=== PATIENT | female | born 1945 | race Caucasian/White ===

== ENCOUNTER 2019-09-29 21:52 | Emergency (ER) | payer BC, MEDICARE, OTHER ==
[2019-09-29] MEDS ORDERED: LORazepam 2 MG/ML SDV IVPUSH ONE ×2 (22:57→23:55)
--- NOTE | 2019-09-29 22:57 | EDM.PDOC ---
ED HPI GENERAL MEDICAL PROBLEM - General Chief Complaint: General Stated Complaint: MEDICAL VIA [facility] Time Seen by Provider: 09/29/19 22:48 Source of Information: Reports: Patient History Limitations: Reports: No Limitations - History of Present Illness INITIAL COMMENTS - FREE TEXT/NARRATIVE: Laura is a 74 yo female that is brought into the ED via EMS for anxiety. She was home this evening with her and he collapsed and went unresponsive (around 20:00) right after he put eye drops in. EMS was called and he was intubated and airlifted to [facility] in [facility] in critical condition. Laura is very anxious about her as they have been together since they were [age]. Her son that lives in the [facility] is on his way and the daughter from [place] is also on her way. Denies any pain. Is tachycardic and slightly tachypneic upon arrival. Onset: Sudden Duration: Hour(s): (3) - Related Data Allergies Allergy/AdvReac Type Severity Reaction Status Date / Time erythromycin base Allergy BAD DREAMS Verified 09/29/19 22:19 [From Staticin] VERY VIVID ethyl alcohol [From Staticin] Allergy BAD DREAMS Verified 09/29/19 22:19 VERY VIVID lisinopril Allergy Cannot Verified 09/29/19 22:19 Remember simvastatin [From Zocor] Allergy DREAMING Verified 09/29/19 22:19 VIVID [id number] Reductase Allergy Cannot Verified 09/29/19 22:19 Inhibitor Remember tramadol Allergy Hives Verified 09/29/19 22:19 Home Meds: Home Meds Aspirin 650 mg PO BID PRN 10/25/14 [History] Levothyroxine Sodium [Synthroid] 62 mcg PO DAILY 10/25/14 [History] Losartan [Cozaar] 100 mg PO DAILY 10/25/14 [History] Multivitamin with Minerals [Multiple Vitamin] 1 tab PO DAILY 10/25/14 [History] Standish-3 Fatty Acids/Fish Oil [Fish Oil 1,200 mg Softgel] 1 cap PO BID 10/25/14 [History] Triamterene/Hydrochlorothiazid [Dyazide 37.5-25] 1 tab PO DAILY 10/25/14 [History] Diclofenac Sodium [Voltaren] 100 gm TP ASDIRECTED 09/29/19 [History] Past Medical History HEENT History: Reports: Impaired Vision Cardiovascular History: Reports: Hypertension HEEL LAYER History: Reports: Psychiatric History: Reports: Anxiety Endocrine/Metabolic History: Reports: Hypothyroidism Oncologic (Cancer) History: Reports: Uterine - Infectious Disease History Infectious Disease History: Reports: Chicken Pox, Measles, Mumps - Past Surgical History Female Surgical History: Reports: Hysterectomy Social & Family History - Family History Family Medical History: Noncontributory - Tobacco Use Smoking Status *Q: Never Smoker - Caffeine Use Caffeine Use: Reports: Soda - Recreational Drug Use Recreational Drug Use: No ED ROS GENERAL - Review of Systems Review Of Systems: See Below Constitutional: Reports: No Symptoms HEENT: Reports: No Symptoms Respiratory: Reports: No Symptoms. Denies: Pleuritic Chest Pain Cardiovascular: Reports: Other (tachycardia). Denies: Chest Pain Endocrine: Reports: No Symptoms GI/Abdominal: Denies: Abdominal Pain, Nausea : Reports: No Symptoms Musculoskeletal: Reports: No Symptoms Skin: Reports: No Symptoms Neurological: Reports: No Symptoms Psychiatric: Reports: Anxiety Hematologic/Lymphatic: Reports: No Symptoms Immunologic: Reports: No Symptoms ED EXAM, GENERAL - Physical Exam Exam: See Below Exam Limited By: No Limitations General Appearance: Alert, Mild Distress Head: Atraumatic, Normocephalic Respiratory/Chest: No Respiratory Distress, Lungs Clear, Normal Breath Sounds, No Accessory Muscle Use Cardiovascular: Regular Rate, Rhythm, No Edema, No Murmur GI/Abdominal: Non-Tender Extremities: Normal Capillary Refill Course - Vital Signs Last Recorded V/S: Last Vital Signs Temp 96.4 F L 09/29/19 22:21 Pulse 100 09/30/19 01:17 Resp 12 09/29/19 23:31 BP 140/79 09/30/19 01:17 Pulse Ox 95 09/29/19 23:31 - Orders/Labs/Meds Labs: Laboratory Tests 09/30/19 09/30/19 09/30/19 Range/Units 00:20 00:20 00:20 WBC 10.0 (4.5-11.0) K/uL RBC 4.57 (3.30-5.50) M/uL Hgb 13.1 (12.0-15.0) g/dL Hct 40.4 (36.0-48.0) % MCV 88 (80-98) fL MCH 29 (27-31) pg MCHC 32 (32-36) % Plt Count 206 (150-400) K/uL Neut % (Auto) 88 H (36-66) % Lymph % (Auto) 7 L (24-44) % [place] % (Auto) 5 (2-6) % Eos % (Auto) 0 L (2-4) % Baso % (Auto) 0 (0-1) % Sodium 139 L (140-148) mmol/L Potassium 3.7 (3.6-5.2) mmol/L Chloride 105 (100-108) mmol/L Carbon Dioxide 20 L (21-32) mmol/L Anion Gap 17.7 H (5.0-14.0) mmol/L BUN 32 H (7-18) mg/dL Creatinine 1.8 H (0.6-1.0) mg/dL Est Cr Clr Drug Dosing 24.89 mL/min Estimated GFR (MDRD) 27 L (>60) Glucose 141 H (74-106) mg/dL Calcium 9.2 (8.5-10.1) mg/dL TSH, Ultra Sensitive 0.565 (0.358-3.740) uIU/mL Meds: Medications Discontinued Medications Generic Name Dose Route Start Last Admin Trade Name Freq PRN Reason Stop Dose Admin Sodium Chloride 1,000 mls @ 999 mls/hr 09/30/19 01:20 09/30/19 01:20 Normal Saline IV 09/30/19 02:20 999 mls/hr .BOLUS ONE Administration Lorazepam 0.5 mg 09/29/19 22:57 09/29/19 23:14 Ativan IVPUSH 09/29/19 22:58 0.5 mg ONETIME ONE Administration Lorazepam 0.5 mg 09/29/19 23:55 09/30/19 00:05 Ativan IVPUSH 09/29/19 23:56 0.5 mg ONETIME ONE Administration - Re-Assessments/Exams Free Text/Narrative Re-Assessment/Exam: 09/29/19 23:47 patient states that she is feeling better after ativan. Still quite worried about her as she hasn't heard anything from [facility] yet. Free Text/Narrative Re-Assessment/Exam: 09/30/19 00:52 heart rate is trending downwards. rate at 100. NSR. pt resting with eyes closed. Departure - Departure Time of Disposition: 01:41 Disposition: Home, Self-Care 01 Clinical Impression: Renal insufficiency, Anxiety - Discharge Information *PRESCRIPTION DRUG MONITORING PROGRAM REVIEWED*: No *COPY OF PRESCRIPTION DRUG MONITORING REPORT IN PATIENT DORIS: No Instructions: Chronic Kidney Disease, Adult Referrals: PCP,None [Primary Care Provider] - Forms: ED Department Discharge Additional Instructions: Your lab work did show your chronic renal insufficiency. Your BUN was 32, creatinine 1.8, and your GFR is 27. Continue to drink plenty of fluids over the next few days. Follow-up with your PCP in the next week or two. Your heart rate was elevated when you first got here but that has come down to an appropriate rate. Call or return to ED with any worsening of symptoms or other acute stewart rns. Sepsis Event Note (ED) - Evaluation Sepsis Screening Result: No Definite Risk - Focused Exam Vital Signs: Vital Signs Temp Pulse Resp BP Pulse Ox 09/30/19 01:17 100 140/79 09/30/19 00:47 97 136/62 09/30/19 00:17 127 H 148/67 H 09/29/19 23:31 125 H 12 141/40 H 95 09/29/19 22:47 127 H 12 127/88 97 09/29/19 22:21 96.4 F L 145 H 21 H 159/83 H 98 09/29/19 22:17 140 H 137/83 09/29/19 21:54 96.4 F L 145 H 21 H 159/83 H 98 - Assessment/Plan Plan: pt to be discharge home with son.
[2019-09-30] MEDS ORDERED: Sodium Chloride 0.9% 1,000 ML IV ONE (01:20)
[2019-09-30 01:59] VITALS: BP 140/79; PULSE 100
== END 2019-09-30 02:00 | disposition home or self-care (01) ==
LOC: JP.ED 21:52
DX: F41.9 Anxiety disorder, unspecified (principal); N28.9 Disorder of kidney and ureter, unspecified; I10 Essential (primary) hypertension; E03.9 Hypothyroidism, unspecified; Z88.1 Allergy status to other antibiotic agents; Z88.8 Allergy status to other drugs, medicaments and biological substances; Z79.82 Long term (current) use of aspirin; Z79.899 Other long term (current) drug therapy
CPT/HCPCS: 36415; 80048; 84443; 85025; 96361; 96374; 96376; 99283; J2060; J7030